=== PATIENT | male | born 1985 | race African-American/Black ===

== ENCOUNTER 2020-02-23 16:54 | Outpatient (REF) | payer OTHER, SELFPAY ==
[2020-02-23 17:14] LABS: COVID-19 Test Negative (Negative)
== END 2020-02-23 16:55 | disposition home or self-care (01) ==
LOC: HO.LAB 16:54
PROVIDERS: Visit Provider Internal Medicine
DX: Z20.828 Contact with and (suspected) exposure to other viral communicable diseases (principal)
CPT/HCPCS: 87635

== ENCOUNTER 2020-02-29 16:04 | Outpatient (REF) | payer OTHER, SELFPAY ==
[2020-02-29 17:09] LABS: SARS COV2 PCR INHOUSE NEGATIVE (Negative)
== END 2020-02-29 16:05 | disposition home or self-care (01) ==
LOC: HO.LAB 16:04
PROVIDERS: Visit Provider Internal Medicine
DX: Z20.828 Contact with and (suspected) exposure to other viral communicable diseases (principal)
CPT/HCPCS: 87635

== ENCOUNTER 2020-03-03 10:25 | Outpatient (REF) | payer OTHER, SELFPAY ==
[2020-03-03 10:43] LABS: COVID-19 Test Negative (Negative)
== END 2020-03-03 10:26 | disposition home or self-care (01) ==
LOC: HO.LAB 10:25
PROVIDERS: Visit Provider Internal Medicine
DX: Z20.828 Contact with and (suspected) exposure to other viral communicable diseases (principal)
CPT/HCPCS: 87635

== ENCOUNTER → 2020-10-04 13:57 | Outpatient (BNVA) | payer OTHER, SELFPAY | DX: Z77.21 Contact with and (suspected) exposure to potentially hazardous body fluids (principal) | CPT/HCPCS: 36415; 84450; 84460; 86803; 87389; 99203 ==

== ENCOUNTER → 2020-11-14 08:50 | Outpatient (BNVA) | payer OTHER, SELFPAY | DX: Z77.21 Contact with and (suspected) exposure to potentially hazardous body fluids (principal) | CPT/HCPCS: 36415; 84450; 84460; 87389; 99211 ==

== ENCOUNTER 2021-05-08 16:35 | Outpatient (REF) | payer OTHER, SELFPAY ==
[2021-05-08 17:28] LABS: Influenza A PCR NEGATIVE (Negative); Influenza B PCR NEGATIVE (Negative); Resp Syncy Virus RNA Qual PCR NEGATIVE (Negative); SARS COV2 PCR INHOUSE NEGATIVE (Negative)
== END 2021-05-08 16:36 | disposition home or self-care (01) ==
LOC: HO.LAB 16:35
PROVIDERS: Visit Provider Internal Medicine
DX: Z20.822 Contact with and (suspected) exposure to COVID-19 (principal)
CPT/HCPCS: 0241U

== ENCOUNTER 2021-05-22 16:19 | Outpatient (REF) | payer OTHER, SELFPAY ==
[2021-05-22 17:22] LABS: COVID-19 Test Negative (Negative)
== END 2021-05-22 16:20 | disposition home or self-care (01) ==
LOC: HO.LAB 16:19
PROVIDERS: Visit Provider Internal Medicine
DX: Z20.822 Contact with and (suspected) exposure to COVID-19 (principal)
CPT/HCPCS: 87635

== ENCOUNTER 2021-05-29 15:52 | Outpatient (REF) | payer OTHER, SELFPAY ==
[2021-05-29 16:41] LABS: COVID-19 Test Negative (Negative); IDNOW Serial# 9DD0AD1C
== END 2021-05-29 15:53 | disposition home or self-care (01) ==
LOC: HO.LAB 15:52
PROVIDERS: Nurse Practitioner Family; Referring Provider Internal Medicine; Visit Provider Internal Medicine
DX: Z20.822 Contact with and (suspected) exposure to COVID-19 (principal)
CPT/HCPCS: 87635; C9803

== ENCOUNTER → 2021-08-14 14:33 | Outpatient (BNVA) | payer OTHER, SELFPAY | DX: Z77.21 Contact with and (suspected) exposure to potentially hazardous body fluids (principal) | CPT/HCPCS: 36415; 84450; 84460; 86803; 87389; 99211 ==

== ENCOUNTER 2021-12-05 16:35 | Emergency (ER) | payer OTHER, SELFPAY ==
--- NOTE | ~2021-12-05 | XR_ITS ---
EXAMINATION: XR knee RT 4V, XR tibia fibula RT 2V CLINICAL INFORMATION: Reason for Exam fall right knee pain COMPARISON: None. TECHNIQUE: 4 views right knee; AP and lateral views right tibia and fibula FINDINGS: Right knee: No fracture, dislocation, or knee joint effusion. Joint spaces appear maintained. Minimal spurring of the lateral tibial spine. No large osteophytes. No osseous lesion. Right tibia and fibula: No fracture or malalignment. No osseous lesion. No ankle joint effusion. XR/XR tibia fibula RT 2V IMPRESSION: 1. No knee joint effusion or acute osseous injury.
--- NOTE | ~2021-12-05 | XR_ITS ---
EXAMINATION: XR knee RT 4V, XR tibia fibula RT 2V CLINICAL INFORMATION: Reason for Exam fall right knee pain COMPARISON: None. TECHNIQUE: 4 views right knee; AP and lateral views right tibia and fibula FINDINGS: Right knee: No fracture, dislocation, or knee joint effusion. Joint spaces appear maintained. Minimal spurring of the lateral tibial spine. No large osteophytes. No osseous lesion. Right tibia and fibula: No fracture or malalignment. No osseous lesion. No ankle joint effusion. XR/XR knee RT 4V IMPRESSION: 1. No knee joint effusion or acute osseous injury.
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
== END 2021-12-05 19:11 | disposition home or self-care (01) ==
PROVIDERS: Emergency Provider Internal Medicine; PCP Nurse Practitioner Family
DX: S83.91XA Sprain of unspecified site of right knee, initial encounter (principal); M25.561 Pain in right knee; X58.XXXA Exposure to other specified factors, initial encounter; Y93.9 Activity, unspecified; Y92.9 Unspecified place or not applicable; Y99.0 Civilian activity done for income or pay
CPT/HCPCS: 73564; 73590; 99283